=== PATIENT | female | born 1995 | race Caucasian/White ===

== ENCOUNTER → 2023-07-11 | Outpatient (REF) | payer OTHER | LOC: M LAB REF 12:24 | PROVIDERS: ATTEND Nurse Practitioner Family | DX: R30.0 Dysuria (principal); N39.0 Urinary tract infection, site not specified ==

== ENCOUNTER 2024-02-10 13:13 | Emergency (ER) | payer MEDICAID, OTHER, SELFPAY ==
[~2024-02-10] VITALS: Ht 167.6 cm; Wt 141.0 kg
[2024-02-10] MEDS ORDERED: ACET1TAB55 PO (13:23)
[2024-02-10] MEDS: ONDANSETRON 4MG 2ML VIAL IV ONE (14:24)
[2024-02-10] MEDS: MORPHINE 4 MG/ML 1ML VIAL IV ONE (14:24)
[2024-02-10] MEDS: NS 1,000 ML IV ONE (14:24)
[2024-02-10 14:31] LABS: BASO % 0.2 % (0.0-1.0); EOS # 0.2 10^3/uL (0.0-0.5); EOS % 1.9 % (0.0-3.0); HEMATOCRIT 40.9 % (36.0-47.0); LYMPH # 3.1 10^3/uL (1.5-5.0); MEAN CORPUSCULAR HEMOGLOBIN 28.7 pg (27.0-33.0); MEAN CORPUSCULAR HGB CONC 34.2 g/dl (32.0-36.5); MEAN CORPUSCULAR VOLUME 83.8 fl (80.0-96.0); MONO # 0.8 10^3/uL (0.0-0.8); MONO % 6.7 % (2.0-8.0); NEUTROPHILS # 8.2 10^3/uL (1.5-8.5); NEUTROPHILS % 65.9 % (36.0-66.0); PLATELET COUNT, AUTOMATED 305 10^3/uL (150-450); RED BLOOD COUNT 4.88 10^6/uL (4.00-5.40); WHITE BLOOD COUNT 12.5 10^3/uL (4.0-10.0)
[2024-02-10 14:57] LABS: ERYTHROCYTE SEDIMENTATION RATE 71 mm/hr (0-20)
[2024-02-10] MEDS ORDERED: ISOVUE-370 76% 100ML VIAL As Ordered ONE (15:00)
[2024-02-10] MEDS: cefTRIAXone SOD 1 GM in D5W MINI-BAG PLUS 50 ML IV ONE (15:55)
[2024-02-10] MEDS ORDERED: AMOX875T2 PO (16:14)
[2024-02-10] MEDS ORDERED: HYDR-3713 PO (16:14)
[2024-02-10] MEDS ORDERED: NAPR-837 PO (16:14)
[2024-02-10 16:24] VITALS: BP 136/84; TEMP 98.4; O2SAT 99
== END 2024-02-10 16:28 | disposition home or self-care (01) ==
LOC: M ED 13:13
DX: K04.7 Periapical abscess without sinus (principal); R22.0 Localized swelling, mass and lump, head; Z79.1 Long term (current) use of non-steroidal anti-inflammatories (NSAID); Z79.2 Long term (current) use of antibiotics; Z79.899 Other long term (current) drug therapy
CPT/HCPCS: 70487; 80047; 83605; 84702; 85025; 85652; 86140; 96361; 96374; 96375; 99284; J0696; J2405; Q9967

== ENCOUNTER 2024-07-12 19:33 | Emergency (ER) | payer OTHER, SELFPAY ==
[~2024-07-12] VITALS: Ht 170.2 cm; Wt 146.7 kg
[~2024-07-12 19:33] MED LIST: ACET1TAB55 PO; AMOX875T2 PO; HYDR-3713 PO; NAPR-837 PO
[2024-07-12 20:23] LABS: BASO % 0.3 % (0.0-1.0); EOS # 0.2 10^3/uL (0.0-0.5); EOS % 1.7 % (0.0-3.0); HEMATOCRIT 39.1 % (36.0-47.0); HEMOGLOBIN 13.2 g/dl (12.0-15.5); LYMPH # 2.3 10^3/uL (1.5-5.0); LYMPH % 21.4 % (24.0-44.0); MEAN CORPUSCULAR HEMOGLOBIN 28.6 pg (27.0-33.0); MEAN CORPUSCULAR HGB CONC 33.8 g/dl (32.0-36.5); MEAN CORPUSCULAR VOLUME 84.8 fl (80.0-96.0); MONO # 0.6 10^3/uL (0.0-0.8); NEUTROPHILS # 7.4 10^3/uL (1.5-8.5); NEUTROPHILS % 70.2 % (36.0-66.0); PLATELET COUNT, AUTOMATED 268 10^3/uL (150-450); RED BLOOD COUNT 4.61 10^6/uL (4.00-5.40); WHITE BLOOD COUNT 10.6 10^3/uL (4.0-10.0)
[2024-07-12 20:48] LABS: LIPASE 30 U/L (12-53)
[2024-07-12 20:50] LABS: ALBUMIN 3.6 G/DL (3.2-5.2); ALKALINE PHOSPHATASE 79 U/L (46-116); ALT/SGPT 76 U/L (7.0-40); AST/SGOT 45 U/L (<34); BILIRUBIN,DIRECT 0.3 MG/DL (<0.4); BLOOD UREA NITROGEN 11 MG/DL (9-23); CALCIUM LEVEL 9.3 MG/DL (8.5-10.1); CARBON DIOXIDE LEVEL 29 MMOL/L (20-31); CHLORIDE LEVEL 108 MMOL/L (98-107); CREATININE FOR GFR 0.85 MG/DL (0.55-1.30); GLOMERULAR FILTRATION RATE > 60.0 (>60); GLUCOSE, FASTING 112 MG/DL (60-100); POTASSIUM SERUM 3.8 MMOL/L (3.5-5.1); SODIUM LEVEL 141 MMOL/L (136-145); TOTAL PROTEIN 7.4 G/DL (5.7-8.2)
[2024-07-12 20:54] LABS: HCG, SERUM QUALITATIVE NEGATIVE (NEGATIVE)
[2024-07-12] MEDS ORDERED: MACR100C43 PO (23:22)
[2024-07-12] MEDS ORDERED: OMEP-173 PO (23:22)
[2024-07-12] MEDS: PANTOPRAZOLE 40MG TAB (PROTONIX) PO ONE (23:25)
[2024-07-12 23:30] VITALS: BP 134/81; TEMP 97.6; O2SAT 96
== END 2024-07-12 23:36 | disposition home or self-care (01) ==
LOC: M ED 19:33
DX: N39.0 Urinary tract infection, site not specified (principal); K29.00 Acute gastritis without bleeding; Z79.1 Long term (current) use of non-steroidal anti-inflammatories (NSAID); Z79.2 Long term (current) use of antibiotics; Z79.899 Other long term (current) drug therapy

== ENCOUNTER → 2024-12-19 | Outpatient (REF) | payer OTHER ==
[~2024-12-19] MED LIST changes: +MACR100C43 PO; +OMEP-173 PO
== END ==
LOC: M PLALAB 13:49
PROVIDERS: ATTEND Nurse Practitioner Family
DX: Z34.81 Encounter for supervision of other normal pregnancy, first trimester (principal); E66.01 Morbid (severe) obesity due to excess calories; Z86.32 Personal history of gestational diabetes

== ENCOUNTER → 2024-12-20 | Outpatient (CLI) | payer OTHER ==
[2024-12-20 14:48] LABS: HEMATOCRIT 36.8 % (36.0-47.0); HEMOGLOBIN 12.2 g/dl (12.0-15.5); MEAN CORPUSCULAR HEMOGLOBIN 28.6 pg (27.0-33.0); MEAN CORPUSCULAR HGB CONC 33.2 g/dl (32.0-36.5); MEAN CORPUSCULAR VOLUME 86.4 fl (80.0-96.0); PLATELET COUNT, AUTOMATED 276 10^3/uL (150-450); RED BLOOD COUNT 4.26 10^6/uL (4.00-5.40); WHITE BLOOD COUNT 10.7 10^3/uL (4.0-10.0)
[2024-12-20 15:29] LABS: URIC ACID 5.8 MG/DL (3.1-7.8)
[2024-12-20 15:33] LABS: LDH LACTATE DEHYDROGENASE 202 U/L (120-246)
[2024-12-20 15:34] LABS: ALT/SGPT 59 U/L (7.0-40); AST/SGOT 58 U/L (<34); BILIRUBIN,TOTAL 0.7 MG/DL (0.3-1.2); CREATININE FOR GFR 0.54 MG/DL (0.55-1.30); GLOMERULAR FILTRATION RATE > 60.0 (>60); GLUCOSE CHALLENGE TEST 1 HOUR 141 MG/DL (LESS THAN 140)
[2024-12-20 17:15] LABS: TOTAL PROTEIN,RANDOM URINE 13.9 MG/DL (0.0-14.0)
[2024-12-20 18:29] LABS: HEPATITIS C VIRUS ABY INDEX 0.03 INDEX (<0.8); HIV 1&2 SCREEN NEGATIVE (NEGATIVE)
[2024-12-21 13:15] LABS: GC DNA AMPLIFICATION NEGATIVE (NEGATIVE)
== END ==
LOC: M PLALAB 08:39
PROVIDERS: ATTEND Nurse Practitioner Family
DX: Z34.81 Encounter for supervision of other normal pregnancy, first trimester (principal)

== ENCOUNTER → 2025-01-01 | Outpatient (CLI) | payer OTHER | LOC: M PLALAB 08:28 | PROVIDERS: ATTEND Nurse Practitioner Family | DX: Z34.81 Encounter for supervision of other normal pregnancy, first trimester (principal) ==

== ENCOUNTER → 2025-01-10 | Outpatient (CLI) | payer OTHER | LOC: M LAB 07:22 | PROVIDERS: ATTEND Nurse Practitioner Family | DX: R73.09 Other abnormal glucose (principal) ==

== ENCOUNTER → 2025-01-22 | Outpatient (CLI) | payer OTHER | LOC: M PLALAB 12:11 | PROVIDERS: ATTEND Nurse Practitioner Family | DX: Z34.80 Encounter for supervision of other normal pregnancy, unspecified trimester (principal) ==

== ENCOUNTER → 2025-01-22 | Outpatient (REF) | payer OTHER | LOC: M PLALAB 11:19 | PROVIDERS: ATTEND Nurse Practitioner Family | DX: Z34.80 Encounter for supervision of other normal pregnancy, unspecified trimester (principal) ==

== ENCOUNTER → 2025-02-13 | Outpatient (CLI) | payer OTHER | LOC: M RAD 11:48 | PROVIDERS: ATTEND Nurse Practitioner Family | DX: Z34.82 Encounter for supervision of other normal pregnancy, second trimester (principal); Z3A.18 18 weeks gestation of pregnancy ==

== ENCOUNTER → 2025-04-01 | Outpatient (CLI) | payer OTHER | LOC: M RAD 14:23 | PROVIDERS: ATTEND Nurse Practitioner Family | DX: Z34.80 Encounter for supervision of other normal pregnancy, unspecified trimester (principal) ==

== ENCOUNTER → 2025-04-03 | Outpatient (CLI) | payer OTHER ==
[2025-04-03 16:34] LABS: PLATELET COUNT, AUTOMATED 351 10^3/uL (150-450)
[2025-04-03 17:13] LABS: HIV 1&2 SCREEN NEGATIVE (NEGATIVE)
[2025-04-03 17:20] LABS: HEPATITIS C VIRUS ABY INDEX 0.10 INDEX (<0.8)
[2025-04-03 17:30] LABS: Trichomonas vaginalis (AMP) NOT DETECTED (NEGATIVE)
[2025-04-03 17:54] LABS: GC DNA AMPLIFICATION NEGATIVE (NEGATIVE)
== END ==
LOC: M PLALAB 12:28
PROVIDERS: ATTEND Advanced Practice Midwife
DX: Z34.82 Encounter for supervision of other normal pregnancy, second trimester (principal)

== ENCOUNTER → 2025-04-16 | Outpatient (CLI) | payer OTHER | LOC: M RAD 11:05 | PROVIDERS: ATTEND Nurse Practitioner Family | DX: Z34.82 Encounter for supervision of other normal pregnancy, second trimester (principal); Z3A.27 27 weeks gestation of pregnancy ==

== ENCOUNTER → 2025-05-08 | Outpatient (CLI) | payer OTHER ==
[2025-05-08 16:08] LABS: TOTAL PROTEIN,RANDOM URINE 24.8 MG/DL (0.0-14.0)
[2025-05-08 16:10] LABS: LDH LACTATE DEHYDROGENASE 138 U/L (120-246)
[2025-05-08 16:11] LABS: ALT/SGPT 16 U/L (7.0-40); AST/SGOT 11 U/L (<34); CREATININE FOR GFR 0.57 MG/DL (0.55-1.30); GLOMERULAR FILTRATION RATE > 90.0 (>60)
== END ==
LOC: M LAB 12:11 → M PLALAB 12:11
PROVIDERS: ATTEND Obstetrics & Gynecology
DX: O10.913 Unspecified pre-existing hypertension complicating pregnancy, third trimester (principal)

== ENCOUNTER → 2025-05-13 | Outpatient (CLI) | payer OTHER | LOC: M RAD 16:04 | PROVIDERS: ATTEND Advanced Practice Midwife | DX: O24.313 Unspecified pre-existing diabetes mellitus in pregnancy, third trimester (principal); O10.013 Pre-existing essential hypertension complicating pregnancy, third trimester; Z3A.30 30 weeks gestation of pregnancy ==

== ENCOUNTER → 2025-05-22 | Outpatient (CLI) | payer OTHER | LOC: M WHC 11:46 | PROVIDERS: ATTEND Advanced Practice Midwife | DX: O24.319 Unspecified pre-existing diabetes mellitus in pregnancy, unspecified trimester (principal); O10.013 Pre-existing essential hypertension complicating pregnancy, third trimester; Z3A.32 32 weeks gestation of pregnancy; O40.3XX0 Polyhydramnios, third trimester, not applicable or unspecified ==

== ENCOUNTER → 2025-05-29 | Outpatient (CLI) | payer OTHER | LOC: M WHC 12:15 | PROVIDERS: ATTEND Nurse Practitioner Family | DX: Z36.2 Encounter for other antenatal screening follow-up (principal); O40.9XX0 Polyhydramnios, unspecified trimester, not applicable or unspecified; Z3A.00 Weeks of gestation of pregnancy not specified ==

== ENCOUNTER → 2025-06-05 | Outpatient (CLI) | payer OTHER | LOC: M WHC 07:08 | PROVIDERS: ATTEND Advanced Practice Midwife | DX: O10.013 Pre-existing essential hypertension complicating pregnancy, third trimester (principal); O24.313 Unspecified pre-existing diabetes mellitus in pregnancy, third trimester; O40.3XX0 Polyhydramnios, third trimester, not applicable or unspecified; Z3A.33 33 weeks gestation of pregnancy ==

== ENCOUNTER → 2025-06-12 | Outpatient (CLI) | payer OTHER | LOC: M WHC 11:37 | PROVIDERS: ATTEND Advanced Practice Midwife | DX: O24.319 Unspecified pre-existing diabetes mellitus in pregnancy, unspecified trimester (principal); O10.019 Pre-existing essential hypertension complicating pregnancy, unspecified trimester ==

== ENCOUNTER → 2025-06-17 | Outpatient (REF) | payer OTHER | LOC: M SFHCWAGY 13:01 | PROVIDERS: ATTEND Obstetrics & Gynecology | DX: O40.3XX0 Polyhydramnios, third trimester, not applicable or unspecified (principal) ==

== ENCOUNTER → 2025-06-19 | Outpatient (CLI) | payer OTHER | LOC: M WHC 10:05 | PROVIDERS: ATTEND Advanced Practice Midwife | DX: O40.3XX0 Polyhydramnios, third trimester, not applicable or unspecified (principal); Z3A.00 Weeks of gestation of pregnancy not specified ==

== ENCOUNTER 2025-06-25 07:54 | Inpatient (IN) | payer OTHER ==
[~2025-06-25] VITALS: Ht 170.2 cm; Wt 152.8 kg
[2025-06-25] VITALS (48 sets, daily range): BP systolic 108–168; BP diastolic 59–99
[2025-06-25] MEDS ORDERED: LIDOCAINE 1% MDV 20 ML VIAL INFIL PRN (08:45)
[2025-06-25] MEDS ORDERED: OXYTOCIN INJ 10UNITS/ML 1ML VIAL IM PRN (08:45)
[2025-06-25] MEDS ORDERED: CARBOPROST TROMETHAMINE 250 MCG/ML AMP IM PRN (08:45)
[2025-06-25] MEDS ORDERED: INSU100V19 SQ (08:52)
[2025-06-25] MEDS ORDERED: ASPI81CH48 PO (08:52)
[2025-06-25] MEDS ORDERED: FAMO1TAB11 PO (08:52)
[2025-06-25] MEDS ORDERED: LABE100T6 PO (08:52)
[2025-06-25] MEDS ORDERED: SERT25TA21 PO (08:52)
[2025-06-25] MEDS ORDERED: INSULIN IV RATE CHANGE DOCUMENTATION ML/HR XX SCH (09:00)
[2025-06-25] MEDS: miSOPROStol 50 MCG 1/2 TABLET PO SCH (09:38)
[2025-06-25 09:47] LABS: PLATELET COUNT, AUTOMATED 297 10^3/uL (150-450)
[2025-06-25 10:21] LABS: LDH LACTATE DEHYDROGENASE 168 U/L (120-246)
[2025-06-25 10:22] LABS: ALT/SGPT 43 U/L (7.0-40); AST/SGOT 21 U/L (<34); CREATININE FOR GFR 0.56 MG/DL (0.55-1.30); GLOMERULAR FILTRATION RATE > 90.0 (>60)
[2025-06-25 10:47] LABS: HIV 1&2 SCREEN NEGATIVE (NEGATIVE)
[2025-06-25] MEDS: NS (Normal Saline) 0.9% 1,000 ML IV SCH (10:48)
[2025-06-25] MEDS: ONDANSETRON 4MG 2ML VIAL IV PRN (10:48)
[2025-06-25 10:55] LABS: HEPATITIS C VIRUS ABY INDEX 0.02 INDEX (<0.8)
[2025-06-25] MEDS ORDERED: NALOXONE INJ 0.4 MG/1 ML VIAL IV PRN (11:50)
[2025-06-25] MEDS ORDERED: diphenhydrAMINE 50 MG/ML VIAL IV PRN (11:50)
[2025-06-25] MEDS ORDERED: LR 500 ML IV PRN (11:50)
[2025-06-25] MEDS ORDERED: ONDANSETRON 4MG 2ML VIAL IV PRN (11:50)
[2025-06-25] MEDS ORDERED: EPIDURAL/PCA KEYS XX PRN (11:50)
[2025-06-25] MEDS: FENTANYL/ROPIVACAINE/NACL BAG 100 ML EPIDURAL SCH (11:55)
[2025-06-25] MEDS: INSULIN REGULAR IN 0.9 % NACL 100 UNIT in IV 1 EA IV SCH (14:03)
[2025-06-25] MEDS: OXYTOCIN DRIP 30 UNITS in IV 1 EA IV SCH (14:18)
[2025-06-25] MEDS: FAMOTIDINE 20 MG TAB PO SCH (16:10)
[2025-06-26] VITALS (17 sets, daily range): BP systolic 122–151; BP diastolic 61–101; O2SAT 97
[2025-06-26] MEDS: TRANEXAMIC ACID INJection 1,000 MG in NS 100 ML IV PRN (05:09)
[2025-06-26] MEDS: OXYTOCIN DRIP 30 UNITS in IV 1 EA IV PRN ×2 (05:12→05:34)
[2025-06-26 05:15] LABS: CORD GAS ABE A -5.9; CORD GAS ABE V -3.4; CORD GAS HCO3 A 25.1 MMOL/L; CORD GAS HCO3 V 23.7 MMOL/L; CORD GAS O2 SAT A 48.6 %; CORD GAS O2 SAT V 73.1 %; CORD GAS PCO2 A 75.7 mmHg; CORD GAS PCO2 V 50.4 mmHg; CORD GAS PH A 7.139 UNITS; CORD GAS PH V 7.29 UNITS; CORD GAS PO2 A 25.3 mmHg; CORD GAS PO2 V 31.8 mmHg; CORD GAS SBC A 18.5 MMOL/L; CORD GAS SBC V 21.1 MMOL/L; CORD GAS TCO2 A 27.5 MMOL/L; CORD GAS TCO2 V 25.2 MMOL/L
[2025-06-26] MEDS: OXYTOCIN DRIP 30 UNITS in IV 1 EA IV SCH (05:55)
[2025-06-26] MEDS ORDERED: DIBUCAINE 1% OINTMENT 30 GM TOP PRN (05:55)
[2025-06-26] MEDS ORDERED: METHYLERGONOVINE MALEATE 0.2 MG TAB PO PRN (05:55)
[2025-06-26] MEDS ORDERED: DOCUSATE SODIUM 100 MG CAPSULE PO PRN (05:55)
[2025-06-26] MEDS ORDERED: IBUPROFEN 600 MG TAB PO PRN (05:55)
[2025-06-26] MEDS ORDERED: ACETAMINOPHEN 325 MG TAB PO PRN (05:55)
[2025-06-26] MEDS ORDERED: RHOGAM 300MCG (1500IU) INJ IM SCH (05:55)
[2025-06-26] MEDS: PRENATAL VITAMINS CHEWABLE TABLET PO SCH (09:22)
[2025-06-26] MEDS: SERTRALINE HCL 50 MG TAB PO SCH (09:22)
[2025-06-26] MEDS: LABETALOL 100 MG TAB PO SCH (09:22)
[2025-06-26] MEDS: ACETAMINOPHEN 500 MG TAB PO PRN (09:23)
[2025-06-26 11:49] LABS: PLATELET COUNT, AUTOMATED 247 10^3/uL (150-450)
[2025-06-26] MEDS ORDERED: HOME MED LIST COMPLETE! XX SCH (12:35)
[2025-06-26] MEDS ORDERED: NOVOINJ13 SC (14:46)
[2025-06-26] MEDS: IBUPROFEN 800 MG TAB PO PRN (18:02)
[2025-06-26] MEDS ORDERED: HumuLIN R (REGULAR) INSULIN (NovoLIN R) **100 U/ML** PER UNIT SC SCH (19:00)
[2025-06-26] MEDS ORDERED: HumuLIN N INSULIN (NovoLIN N) PER UNIT SC SCH (19:00)
[2025-06-26] MEDS: HumuLIN N INSULIN (NovoLIN N) PER UNIT SC SCH (20:41)
[2025-06-27 05:42] VITALS: BP 132/69; O2SAT 97
[2025-06-27] MEDS ORDERED: FLUZONE VACCINE TRI PF(25-26) 0.5ML SYRINGE IM.IMMUN ONE (09:00)
[2025-06-27 09:40] VITALS: BP 118/66; O2SAT 98
[2025-06-27 18:00] VITALS: BP 133/68; O2SAT 96
[2025-06-27 20:35] VITALS: BP 119/77; O2SAT 98
[2025-06-28 06:00] VITALS: BP 122/86; O2SAT 98
[2025-06-28] MEDS: MEASLES,MUMPS,RUBELLA VACCINE INJ (MMR-II) SC.IMMUN ONE (09:00)
[2025-06-28 09:23] VITALS: BP 124/61
[2025-06-28] MEDS ORDERED: IBUP80TA PO (13:36)
[2025-06-28] MEDS: FLUZONE VACCINE TRI PF(25-26) 0.5ML SYRINGE IM.IMMUN ONE (15:02)
== END 2025-06-28 18:30 | disposition home or self-care (01) | DRG 560 ==
LOC: M LDI 07:54 → M OBS 06-26 10:33
PROVIDERS: ADMIT Advanced Practice Midwife; ATTEND Advanced Practice Midwife
PROC: 3E0P7GC Introduction of Other Therapeutic Substance into Female Reproductive, Via Natural or Artificial Opening (ICD-10-PCS; 2025-06-25)
PROC: 10E0XZZ Delivery of Products of Conception, External Approach (ICD-10-PCS; principal; 2025-06-26)
DX: O40.3XX0 Polyhydramnios, third trimester, not applicable or unspecified (principal); O24.12 Pre-existing type 2 diabetes mellitus, in childbirth; O10.02 Pre-existing essential hypertension complicating childbirth; Z3A.37 37 weeks gestation of pregnancy; Z79.4 Long term (current) use of insulin; Z79.899 Other long term (current) drug therapy; O71.7 Obstetric hematoma of pelvis; Z37.0 Single live birth